=== PATIENT | male | born 1945 | race Caucasian/White ===

== ENCOUNTER 2025-02-26 11:05 | Emergency (ER) | payer MEDICARE, OTHER ==
[~2025-02-26] VITALS: Ht 182.9 cm; Wt 83.5 kg
[~2025-02-26 11:05] MED LIST: ASPI-605 PO; ATOR10TA PO; LUBI24CA5 PO; MULT-331 PO; TAMS0.4C34 PO; ZOLP10TA6 PO; calcium; vitamin d
[2025-02-26 11:07] VITALS: BP 131/77
[2025-02-26] MEDS ORDERED: ONDANSETRON ODT 4 MG TAB.RAPDIS ONE (11:19)
[2025-02-26] MEDS: ONDANSETRON ODT 4 MG TAB.RAPDIS SL ONE (11:21)
[2025-02-26] MEDS ORDERED: FERR-68 PO (11:35)
[2025-02-26] MEDS ORDERED: DUTA0.5C37 PO (11:35)
[2025-02-26] MEDS ORDERED: MAGN250T2 PO (11:35)
[2025-02-26] MEDS ORDERED: CARB1TAB21 PO (11:35)
[2025-02-26] MEDS ORDERED: POLY119P2 PO (11:35)
[2025-02-26] MEDS ORDERED: CYAN50009 PO (11:35)
[2025-02-26] MEDS ORDERED: OMEG-88 PO (11:35)
[2025-02-26] MEDS ORDERED: ATOR40TA PO (11:35)
[2025-02-26] MEDS ORDERED: FURO20TA4 PO (11:35)
[2025-02-26] MEDS ORDERED: BISA-79 PO (11:35)
[2025-02-26] MEDS ORDERED: APIX2.5T PO (11:35)
[2025-02-26] MEDS ORDERED: VIBEGRON PO (11:35)
[2025-02-26] MEDS ORDERED: MULT-594 PO (11:35)
[2025-02-26] MEDS ORDERED: DOXE6TAB4 PO (11:35)
[2025-02-26] MEDS ORDERED: METO-356 PO (11:35)
[2025-02-26] MEDS ORDERED: DOCU100T2 PO (11:35)
[2025-02-26] MEDS ORDERED: TRAZ-182 PO (11:35)
[2025-02-26] MEDS ORDERED: VIT1CAPS9 PO (11:35)
[2025-02-26 11:51] LABS: PLATELET COUNT (AUTO) 166 K/uL (152-348); RED BLOOD CELL COUNT(AUTO) 3.79 MIL/uL (4.06-5.63); RED CELL DISTRIBUTION WIDTH 13.4 % (12.1-16.2); WHITE BLOOD COUNT (AUTO) 5.2 K/uL (3.6-10.2)
[2025-02-26 12:00] LABS: CREATININE 0.8 mg/dL (0.6-1.3); SODIUM SERUM 148 mmol/L (136-145); UREA NITROGEN, BLOOD 21 mg/dL (7-18)
[2025-02-26 12:05] LABS: ASPARTATE AMINOTRANSFERASE 10 U/L (15-37); TOTAL PROTEIN, SERUM 6.3 g/dL (6.4-8.2)
[2025-02-26] MEDS ORDERED: IV NORMAL SALINE 500 ML BAG IV ONE (13:15)
[2025-02-26] MEDS: NEOMY/BACITRA/POLYMYXIN B OINT UD PACKET TP ONE (13:22)
[2025-02-26] MEDS: IV DEXTROSE 5% 500 ML IV PRN (13:22)
[2025-02-26] MEDS ORDERED: NEOMY/BACITRA/POLYMYXIN B OINT UD PACKET TP ONE ×2 (14:09→14:12)
[2025-02-26 14:43] VITALS: BP 127/69; TEMP 97.8; O2SAT 96
== END 2025-02-26 14:49 | disposition home or self-care (01) ==
LOC: ER 11:05
DX: S00.81XA Abrasion of other part of head, initial encounter (principal); E78.00 Pure hypercholesterolemia, unspecified; F03.90 Unspecified dementia, unspecified severity, without behavioral disturbance, psychotic disturbance, mood disturbance, and anxiety; G47.30 Sleep apnea, unspecified; I10 Essential (primary) hypertension; Z79.01 Long term (current) use of anticoagulants; Z79.82 Long term (current) use of aspirin; Z79.899 Other long term (current) drug therapy; W01.198A Fall on same level from slipping, tripping and stumbling with subsequent striking against other object, initial encounter; Y93.89 Activity, other specified; Y92.89 Other specified places as the place of occurrence of the external cause; Y99.8 Other external cause status
CPT/HCPCS: 99284; 96360; 70450; 80076; 80048; 85025; 85730; 36415; 93005; J7060 ×2; Q0162